=== PATIENT | male | born 1955 ===

== ENCOUNTER 2017-11-20 08:46 | Emergency (ER) | payer OTHER ==
[2017-11-20] MEDS ORDERED: METHYLPREDNISOLONE 125 MG INJ ONE (09:13)
--- NOTE | 2017-11-20 09:13 | EDPHYS ---
Physician Documentation [facility] Name: Roger Diaz Age: 61 yrs Sex: Male : 1955 Arrival Date: 11/20/2017 Time: 08:49 Bed 19 Private MD: ED Physician Medardo Duron HPI: 11/20 09:08 This 61 yrs old Male presents to ER via Ambulatory with complaints of left Ankle Pain. pm1 09:08 The patient presents with pain, that is acute. The complaints affect the left ankle. pm1 Onset: The symptoms/episode began/occurred last night. Context: The problem was sustained at home, resulted from a gout flare up, The patient can fully bear weight on the affected extremity. the patient is able to ambulate. Associated signs and symptoms: Pertinent positives: swelling, Pertinent negatives: calf tenderness, fever. Modifying factors: The symptoms are alleviated by Steroids in the past with prior gout flare ups the symptoms are aggravated by weight bearing. Severity of symptoms: in the emergency department the symptoms are actually worse. The patient has experienced similar episodes in the past, multiple times, and the symptoms today are exactly the same, to previous gout flare ups. The patient has not recently seen a physician. Historical: - Allergies: 09:02 NKA; iw - Home Meds: 09:02 colchicine 0.6 mg Oral cap 1 cap once daily [Active]; lisinopril 10 mg Oral tab 1 tab iw once daily [Active]; - PMHx: 09:02 Gout; Hypertension; iw - PSHx: 09:02 None; iw - Immunization history:: Adult Immunizations up to date. - Social history:: Smoking status: Patient/guardian denies using tobacco. ROS: 09:08 Constitutional: Negative for fever, chills, and weight loss, Eyes: Negative for injury, pm1 pain, redness, and discharge, ENT: Negative for injury, pain, and discharge, Neck: Negative for injury, pain, and swelling, Cardiovascular: Negative for chest pain, palpitations, and edema, Respiratory: Negative for shortness of breath, cough, wheezing, and pleuritic chest pain, Abdomen/GI: Negative for abdominal pain, nausea, vomiting, diarrhea, and constipation, Back: Negative for injury and pain. 09:08 Skin: Negative for injury, rash, and discoloration, Neuro: Negative for headache, weakness, numbness, tingling, and seizure. 09:08 MS/extremity: Positive for pain, swelling, of the left lateral ankle. Exam: 09:08 Constitutional: This is a well developed, well nourished patient who is awake, alert, pm1 and in no acute distress. Head/Face: Normocephalic, atraumatic. Chest/axilla: Normal chest wall appearance and motion. Nontender with no deformity. No lesions are appreciated. Cardiovascular: Regular rate and rhythm with a normal S1 and S2. No gallops, murmurs, or rubs. Normal PMI, no JVD. No pulse deficits. Respiratory: Lungs have equal breath sounds bilaterally, clear to auscultation and percussion. No rales, rhonchi or wheezes noted. No increased work of breathing, no retractions or nasal flaring. Back: No spinal tenderness. No costovertebral tenderness. Full range of motion. Skin: Warm, dry with normal turgor. Normal color with no rashes, no lesions, and no evidence of cellulitis. 09:08 Musculoskeletal/extremity: Extremities: grossly normal except: noted in the left lateral ankle: swelling, tenderness, ROM: intact in all extremities, Circulation is intact in all extremities. Pulses: noted to be 2+ in the left dorsalis pedis artery. Vital Signs: 09:02 BP 130 / 87; Pulse 74; Resp 16; Temp 98.2; Pulse Ox 99% on R/A; Weight 90.72 kg; Height iw 6 ft. (182.88 cm); Pain 7/10; 09:02 Body Mass Index 27.12 (90.72 kg, 182.88 cm) iw MDM: 08:59 Patient medically screened. pm1 09:08 Data reviewed: vital signs. Data interpreted: Pulse oximetry: on room air is 99 %. pm1 Interpretation: normal. Counseling: I had a detailed discussion with the patient and/or guardian regarding: the historical points, exam findings, and any diagnostic results supporting the discharge/admit diagnosis, the need for outpatient follow up, to return to the emergency department if symptoms worsen or persist or if there are any questions or concerns that arise at home. Administered Medications: 09:17 Drug: SOLU-Medrol 125 mg Route: IM; Site: left deltoid; em 09:30 Follow up: Response: No adverse reaction em Disposition: 14:54 Co-signature as Attending Physician, Medardo Duron MD. rn Disposition: 11/20/17 09:12 Discharged to Home. Impression: Gout - left ankle. - Condition is Stable. - Discharge Instructions: Gout. - Prescriptions for Medrol (Fidencio) 4 mg Oral Tablets, Dose Pack - take 1 tablet by ORAL route as directed - follow package instructions; 1 packet. - Medication Reconciliation Form, Thank You Letter form. - Follow up: Emergency Department; When: As needed; Reason: Worsening of condition. Follow up: Private Physician; When: 2 - 3 days; Reason: Recheck today's complaints, Continuance of care, Re-evaluation by your physician. - Problem is new. - Symptoms have improved. Signatures: Monster Smith, DAYANA SUPERVISOR E[employer]CTION [employer]OP Rosalia Balbuena RN RN iw Nieto, Roman, MD MD rn Marinas, Patrick, OFFICE AIDE OFFICE AIDE pm1 Corrections: (The following items were deleted from the chart) 09:13 09:12 11/20/2017 09:12 Discharged to Home. Impression: Gout. Condition is Stable. Forms pm1 are Medication Reconciliation Form, Thank You Letter, Antibiotic Education, Prescription Opioid Use. Follow up: Emergency Department; When: As needed; Reason: Worsening of condition. Follow up: Private Physician; When: 2 - 3 days; Reason: Recheck today's complaints, Continuance of care, Re-evaluation by your physician. Problem is new. Symptoms have improved. pm1 09:30 09:13 11/20/2017 09:12 Discharged to Home. Impression: Gout - left ankle. Condition is em Stable. Discharge Instructions: Gout. Prescriptions for Medrol (Fidencio) 4 mg Oral Tablets, Dose Pack - take 1 tablet by ORAL route as directed - follow package instructions; 1 packet. and Forms are Medication Reconciliation Form, Thank You Letter, Antibiotic Education, Prescription Opioid Use. Follow up: Emergency Department; When: As needed; Reason: Worsening of condition. Follow up: Private Physician; When: 2 - 3 days; Reason: Recheck today's complaints, Continuance of care, Re-evaluation by your physician. Problem is new. Symptoms have improved. pm1
--- NOTE | 2017-11-20 09:13 | ER ---
Nurse's Notes [facility] Name: Roger Diaz Age: 61 yrs Sex: Male : 1955 Arrival Date: 11/20/2017 Time: 08:49 Bed 19 Private MD: Diagnosis: Gout-left ankle Presentation: 11/20 08:59 Presenting complaint: Patient states: pt has hx of gout, has had pain, mild redness and iw swelling to left ankle since yesterday, has taken colchicine yesterday but is due to go [place] tomorrow and needs a shot. Transition of care: patient was not received from another setting of care. Onset of symptoms was November 20, 2017. Initial Sepsis Screen: Does the patient meet any 2 criteria? No. Patient's initial sepsis screen is negative. Does the patient have a suspected source of infection? No. Patient's initial sepsis screen is negative. Care prior to arrival: None. 08:59 Method Of Arrival: Ambulatory iw 08:59 Acuity: NILSON 4 iw Historical: - Allergies: 09:02 NKA; iw - Home Meds: 09:02 colchicine 0.6 mg Oral cap 1 cap once daily [Active]; lisinopril 10 mg Oral tab 1 tab iw once daily [Active]; - PMHx: 09:02 Gout; Hypertension; iw - PSHx: 09:02 None; iw - Immunization history:: Adult Immunizations up to date. - Social history:: Smoking status: Patient/guardian denies using tobacco. Screenin:10 Abuse screen: Denies threats or abuse. Nutritional screening: No deficits noted. em Tuberculosis screening: No symptoms or risk factors identified. Fall Risk None identified. Assessment: 09:08 General: Appears in no apparent distress. Behavior is calm, cooperative. Pain: em Complains of pain in right foot Pain currently is 7 out of 10 on a pain scale. Pain began 1 day ago. Neuro: Level of Consciousness is awake, alert, obeys commands, Oriented to person, place, time, situation. Cardiovascular: Capillary refill < 3 seconds Patient's skin is warm and dry. Respiratory: Airway is patent Respiratory effort is even, unlabored, Respiratory pattern is regular, symmetrical. GI: Abdomen is flat. Derm: Skin is intact, Skin is pink, warm \T\ dry. Musculoskeletal: Range of motion: intact in all extremities, Swelling present in right foot. 09:25 Reassessment: Patient appears in no apparent distress at this time. I agree with above iw assessment by Monster Smith LVN. Vital Signs: 09:02 BP 130 / 87; Pulse 74; Resp 16; Temp 98.2; Pulse Ox 99% on R/A; Weight 90.72 kg; Height iw 6 ft. (182.88 cm); Pain 7/10; 09:02 Body Mass Index 27.12 (90.72 kg, 182.88 cm) iw ED Course: 08:49 Patient arrived in ED. mr 08:59 Jeremías Oleary NP is PHCP. pm1 08:59 Medardo Duron MD is Attending Physician. pm1 09:01 Triage completed. iw 09:02 Arm band placed on. iw 09:07 Monster Smith LVN is Primary Nurse. em 09:10 Patient has correct armband on for positive identification. Bed in low position. Call em light in reach. Side rails up X 1. 09:10 No provider procedures requiring assistance completed. Patient did not have IV access em during this emergency room visit. Administered Medications: 09:17 Drug: SOLU-Medrol 125 mg Route: IM; Site: left deltoid; em 09:30 Follow up: Response: No adverse reaction em Outcome: 09:12 Discharge ordered by MD. pm1 09:29 Discharged to home ambulatory. em 09:29 Condition: good 09:29 Discharge instructions given to patient, Instructed on discharge instructions, follow up and referral plans. medication usage, Demonstrated understanding of instructions, follow-up care, medications, Prescriptions given X 1. 09:30 Patient left the ED. em Signatures: Patito Oneal SmithMonster LVN LVN em Rosalia Orellana RN RN iw Jeremías Oleary NP CORRECTIONS SERGEANT pm1 Corrections: (The following items were deleted from the chart) 11:07 09:30 Reassessment: Patient appears in no apparent distress at this time. I agree with iw above assessment by Monster Smith LVN iw
== END 2017-11-20 09:30 | disposition home or self-care (01) ==
LOC: ER 08:46
DX: M10.9 Gout, unspecified (principal); I10 Essential (primary) hypertension
CPT/HCPCS: 96372; 99283; J2930